=== PATIENT | female | born 1995 | race Caucasian/White ===

== ENCOUNTER 2020-12-01 15:37 | Outpatient (CLI) | payer BC | END 2020-12-01 18:45 | disposition home or self-care (01) | LOC: D.LDO 15:37 | PROVIDERS: ATTEND Obstetrics & Gynecology | DX: O47.9 False labor, unspecified (principal) ==

== ENCOUNTER 2020-12-08 14:38 | Inpatient (IN) | payer MEDICAID ==
[~2020-12-08] VITALS: Ht 154.9 cm; Wt 97.5 kg
[2020-12-08 15:44] LABS: BASOPHILS 0.2 % (0-2); EOSINOPHILS 1.3 % (0-7); HEMOGLOBIN 12.2 g/dL (12-16); IMMATURE GRANULOCYTES 1.5 % (0-5); LYMPHOCYTE ABS# 2.11 10x3/uL (1.18-3.74); LYMPHOCYTES 18.1 % (15-50); MCH 27.8 pg (26.0-34.0); MCV 84.3 fL (80.0-100.0); MEAN PLATELET VOLUME 10.8 fL (7.4-10.4); MONOCYTES 8.7 % (2-11); NEUTROPHIL ABS# 8.21 10x3/uL (1.56-6.13); NEUTROPHILS 70.2 % (40-80); PLATELET COUNT 284 10x3/uL (130-400); RBC 4.39 10x6/uL (4.00-5.40); RDW 14.2 % (11.5-14.5); WBC 11.7 10x3/uL (4.8-10.8)
[2020-12-08 15:51] LABS: CALC OSMOLALITY 265 mosm/kg (275-300); CALCIUM 9.4 mg/dL (8.5-10.1); CARBON DIOXIDE 24.3 mmol/L (21.0-32.0); CHLORIDE - SERUM 98 mmol/L (98-107); CREATININE - SERUM 0.5 mg/dL (0.6-1.3); GLUCOSE 72 mg/dL (74-106); POTASSIUM - SERUM 4.5 mmol/L (3.5-5.1); SODIUM 134 mmol/L (136-145); UREA NITROGEN 11 mg/dL (7-18); eGFR NON AFRICAN AMERICAN > 90 mL/min (90-120)
[2020-12-08 15:57] LABS: ALBUMIN 2.7 g/dL (3.4-5.0); ALKALINE PHOSPHATASE 186 U/L (30-120); ALT (SGPT) 21 U/L (10-68); BILIRUBIN - TOTAL 0.19 mg/dL (0.2-1.3); PROTEIN - SERUM 7.1 g/dL (6.4-8.2)
[2020-12-08 16:04] LABS: BILIRUBIN NEGATIVE (NEGATIVE); KETONE NEGATIVE (NEGATIVE); NITRITE NEGATIVE (NEGATIVE); UROBILINOGEN NORMAL mg/dL (< 2)
[2020-12-08 16:08] LABS: BACTERIA MODERATE HPF (NONE SEEN); SQUAMOUS EPITHELIAL 0-5 HPF (0-4)
[2020-12-08 16:59] LABS: CREATININE - URINE 90.1 mg/dL (30-125); PRO/CRE RATIO URINE 0.2 mg/g; PROTEIN - URINE 18.6 mg/dL (0.0-11.9)
[2020-12-08] MEDS ORDERED: PRENAVITE1 TAB PO (17:49)
--- NOTE | 2020-12-08 19:35 | NUR ---
FUNDUS IS SLIGHLY FIRM, WILL PROVIDE FUNDUS MASSAGE, PT IS GETTING 20UNITS OF PIT IN 1000ML LR AT 125ML/HR. NOTIFDIED . WILL REASSESS
--- NOTE | 2020-12-08 19:45 | NUR ---
FUNDUS IS STILL SLIGHLTY BOGGY MIDLINE. NOTIFIED . 1000MCG OF MISOPROSTOL PO NOW ORDERED. V. READ BACK CORRECT.
[2020-12-08 20:45] VITALS: BP 114/92
--- NOTE | 2020-12-08 20:45 | NUR ---
PT ARRIVES TO [facility] FROM THE RECOVERY ROOM. SHE HAS THE BABY WITH HER.
--- NOTE | 2020-12-08 21:00 | NUR ---
PT HAS A REPEAT C SECTION TODAY. SHE HAD SOME PRE ECLAMPSIA WITH HEADACHE, BLURRED VISION AND SWELLING. PT HAS AN IV IN HER LEFT HAND WITH PITOCIN INFUSING. 20 GUAGE PT HAS A HX OF IV DRUG USE BUT WAS IN REHAB HER ENTIRE . SHE HAS A LOW TRANSVERSE INCISION WITH A WHITE DRESSING OVER IT. THERE IS NO SIGN OF DRAINAGE THROUGH THE DRESSING. PT UTERUS HAS BEEN BOGGY. FUNDUS IS FIRM AT THIS TIME. IT IS PAINFUL TO FEEL HER FUNDUS. SHE HAS A PORRAS CATHETER IN PLACE DRAINING YELLOW URINE. PT WAS GOING TO BREAST FEED AND STILL SAYS SHE IS BUT HAS BOTTLE FED ALL THIS SHIFT. PT LUNGS AND WHEEZES AND CRACKLES THROUGHOUT. SHE SMOKES 2 PPD. SHE HAS BEEN INSTRUCTED ON THE USE OF IS AND CAN PULL [phone] NOW. IT DOES MAKE HER COUGH WHICH SHE DOES NOT LIKE SINCE ITS PAINFUL TO HER. PT HAD A SPINAL AND AT THIS TIME SHE CAN MOVE HER FEET. SHE REQUESTED WATER WHICH WAS GIVEN TO HER. SHE STATES SHE IS STARVING BUT I EXPLAINED THAT SHE WAS ON CLEAR LIQUIDS ONLY. I TOLD HER AFTER THE ORDER FOR A REGULAR DIET WAS IN THAT SHE COULD EAT.
[2020-12-08 21:15] VITALS: BP 132/90
[2020-12-08 21:45] VITALS: BP 190/92
--- NOTE | 2020-12-08 22:00 | NUR ---
PT IS RESTING QUIETLY. BABY IN CRIB ON COUCH SLEEPING.
[2020-12-08 22:15] VITALS: BP 146/93
[2020-12-08 23:00] VITALS: BP 136/89
[2020-12-08 23:08] LABS: UDS - AMPHET NEGATIVE QUAL (NEGATIVE); UDS - BARB NEGATIVE QUAL (NEGATIVE); UDS - BENZO NEGATIVE QUAL (NEGATIVE); UDS - COCAINE NEGATIVE QUAL (NEGATIVE); UDS - OPIATE NEGATIVE QUAL (NEGATIVE); UDS - PCP NEGATIVE QUAL (NEGATIVE); UDS - THC NEGATIVE QUAL (NEGATIVE)
--- NOTE | 2020-12-08 23:24 | NUR ---
PT REQUESTED PAIN MEDS. SHE RECEIVED 2 MG DILAUDID IV. HER FEELING FROM THE SPINAL HAS COME BACK. PT TURNS HERSELF FROM SIDE TO SIDE VERY WELL.
--- NOTE | 2020-12-09 00:30 | NUR ---
PT IS RESTING QUIETLY WITHOUT C/O. PT HASN'T REALLY SLEPT BUT DOZED OFF A COUPLE OF TIMES.
[2020-12-09 01:30] VITALS: BP 126/72
--- NOTE | 2020-12-09 02:30 | NUR ---
BABY IS IN THE NURSERY SO MOM CAN SLEEP. PT DIDN'T SLEEP LONG BUT BABY WAS BROUGHT BACK TO HER TO FEED ABOUT THAT TIME
--- NOTE | 2020-12-09 04:30 | NUR ---
PT IS WATCHING TV. SHE HAS NOT SLEPT MORE THAN AN HOUR TONIGHT. I ASKED HER TO PLEASE TRY TO SLEEP WHILE THE BABY WAS SLEEPING. SHE ASKED FOR A BREAK IN WEARING HER SCD'S ABOUT 0300. I CAN'T GET HER TO PUT THEM BACK ON NOW.
[2020-12-09 05:15] VITALS: BP 115/68
--- NOTE | 2020-12-09 05:35 | NUR ---
PT JUST HAD HER BLOOD DRAWN. I ASK IF I COULD PUT THE SCD'S ON AND SHE SAID NO. I TOLD HER AGAIN THAT THIS PREVENTED BLOOD CLOTS AND SHE STILL SAID NO. SHE WILL DO HER IS EVERY NOW AND THEN BUT IT MAKES HER COUGH, WHICH HURTS HER, AND SHE WON'T DO THAT MORE THAN ONE OR TWO TIMES AT A TIME.
[2020-12-09 06:03] LABS: BASOPHILS 0.1 % (0-2); HEMATOCRIT 30.8 % (36.0-48.0); IMMATURE GRANULOCYTES 0.9 % (0-5); LYMPHOCYTE ABS# 1.49 10x3/uL (1.18-3.74); LYMPHOCYTES 14.2 % (15-50); MCHC 32.5 g/dL (31.0-37.0); MCV 83.2 fL (80.0-100.0); MEAN PLATELET VOLUME 10.4 fL (7.4-10.4); MONOCYTES 4.7 % (2-11); NEUTROPHIL ABS# 8.34 10x3/uL (1.56-6.13); NEUTROPHILS 79.1 % (40-80); RDW 14.1 % (11.5-14.5); WBC 10.5 10x3/uL (4.8-10.8)
[2020-12-09 06:19] LABS: PLATELET COUNT 209 10x3/uL (130-400)
--- NOTE | 2020-12-09 07:30 | NUR ---
REPORT RECEIVED FROM Madison FRIEDMAN RN.
[2020-12-09 08:00] VITALS: BP 104/57
--- NOTE | 2020-12-09 09:05 | NUR ---
DR. PIMENTEL CALLED TO UNIT TO NOTIFY THAT ORDERS HAVE BEEN PLACED FOR IV BOLUS. ORDERS NOTED.
--- NOTE | 2020-12-09 10:08 | NUR ---
IV BOLUS COMPLETE. IV RATE DECREASED TO 25CC/HR. URINE VERY LIGHT STRAW COLOR AND OUTPUT INCREASING.
--- NOTE | 2020-12-09 10:30 | NUR ---
DISCUSSED WITH PT THAT SCD'S HELP WITH PREVENTING BLOOD CLOTS. PT STATES SHE DOES NOT WANT THEM ON BECAUSE SHE IS HOT.
[2020-12-09 12:25] VITALS: BP 116/70
--- NOTE | 2020-12-09 12:30 | NUR ---
DR. PIMENTEL CALLED TO UNIT. STATUS UPDATE GIVEN. ORDERS RECEIVED.
--- NOTE | 2020-12-09 12:38 | NUR ---
REVIEWD INCENTIVE SPIROMETER WITH PT. ENCOURAGED PT USE SPIROMETER HOURLY, TAKING 3-4 GOOD BREATHS WITH EACH USE. PT STATES UNDERSTANDING.
[2020-12-09 14:22] LABS: HEMATOCRIT 30.2 % (36.0-48.0); HEMOGLOBIN 9.7 g/dL (12-16)
--- NOTE | 2020-12-09 15:04 | NUR ---
IV SALINE LOCKED AND FLUSHED WITH 5CC NS. PORRAS CATHETER REMOVED. PT UP TO BATHROOM WITH MININAL ASSISTANCE. VOIDED 100CC WITHOUT DIFFICULTY. LINENS CHANGED. PT UP TO AMBULATE IN HALLWAY PUSHING BABY IN BASINETTE.
--- NOTE | 2020-12-09 15:18 | NUR ---
PT BACK TO ROOM AND INTO BED WITHOUT ASSISTANCE. BABY IN CRIB AT BEDSIDE.
--- NOTE | 2020-12-09 16:59 | NUR ---
DR. PIMENTEL CALLED TO UNIT. STATUS UPDATE GIVEN. CALL. DR. Smith WITH NEXT SET OF VITALS. PT UP TO SHOWER.
--- NOTE | 2020-12-09 17:30 | NUR ---
PT BACK TO BED AFTER SHOWER.
--- NOTE | 2020-12-09 18:07 | NUR ---
PT LYING IN BED ON LEFT SIDE, LIGHTS LOW, WATCHING TV. BABY BESIDE MOTHER IN BED. FOB AT BEDSIDE SLEEPING IN CHAIR. VS TAKEN. PULSE 117.
--- NOTE | 2020-12-09 18:16 | NUR ---
DR. PIMENTEL NOTIFIED OF ELEVATED PULSE. NO NEW ORDERS RECEIVED AT THIS TIME. PT REQUESTS PAIN MEDICATION. MED GIVEN.
--- NOTE | 2020-12-09 19:00 | NUR ---
REPORT GIVEN BY NELSON WHITE
[2020-12-09 19:56] VITALS: BP 118/74; Ht 154.9 cm; Wt 97.5 kg
[2020-12-09 20:00] VITALS: BP 115/62
--- NOTE | 2020-12-09 20:00 | NUR ---
IN PT ROOM FOR VS AND ASSESSMENT. PT HAS BEEN WALKING THE HALLS TODAY. SHE IS DOING THIS WELL. SHE HAS ALSO HAD A SHOWER. HER PORRAS IS OUT AND SHE IS VOIDING WELL. HE IV IN THE RIGHT HAND HAS BEEN SALINE LOCKED. PT PULSE HAS BEEN A LITTLE ELEVATED. PT STATES SHE CANNONT FEEL HER HEART WHEN HER PULSE IS HIGH. SHE DOES NOT GET DIZZY. FUNDUS IS FIRM AND LOCHIA IS LIGHT. SHE IS TALKING ABOUT GETTING UP TO WALK. THIS WAS ENCOURAGED. SIDERAILS X2 AND CALL LIGHT WITHIN REACH.
--- NOTE | 2020-12-09 21:06 | NUR ---
IN PT ROOM TO GIVE PO MED. SHE TELLS ME SHE NEVER DID TAKE THAT WALK B/C SHE STARTED HURTING. I ASKED HER IF SHE WANTED PAIN MEDS. SHE STATES YES. PERCOCET 10 MG GIVEN PO. SHE IS NOW IN BED WITH HER TO GO TO SLEEP
--- NOTE | 2020-12-09 23:00 | NUR ---
PT WALKING IN THE HALLS. SHE STATES SHE IS GOING TO CORRIE HER BABY. SHE HAS BEEN IN BED SLEEPING THE LAST COUPLE OF HOURS. PT REALLY WANTS A SANDWICH BUT THERE ARE NO ANY HERE, LD AND MED 3.
[2020-12-10 00:30] VITALS: BP 101/66
--- NOTE | 2020-12-10 00:30 | NUR ---
WHEN I WALKED IN PT ROOM TO TAKE HER VS I FOUND HER ASLEEP IN THE BED WITH THE BABY. I TOOK THE BABY AND PUT HIM IN THE CRIB. I TALKED TO THE MOM ABOUT NOT SLEEPING WITH THE BABY AND HOW IT COULD CAUSE SUFFICATION. SHE VERBALIZED UNDERSTANDING. WE HAD THE SAME CONVERSATION LAST NIGHT.
--- NOTE | 2020-12-10 01:05 | NUR ---
PT CASUALLY ASKED ME TO HAND HER THE BABY. I ASKED HER IF SHE COULD PROMISE 100% THAT SHE WOULD NOT GO BACK TO SLEEP WITH THE BABY. SHE SAID NO AND I TOLD HER THAT I COULD NOT DO IT. I ASKED IF SHE'D LIKE THE BABY TO GO TO THE NURSERY FOR A WHILE AND SHE SAID NO. THE BABY IS RESTING QUIETLY IN THE CRIB BESIDE THE PT.
--- NOTE | 2020-12-10 03:07 | NUR ---
MYLICON CHEWABLE TABS GIVEN TO PT PER ORDER. WHEN I WAS LEAVING HER ROOM SHE ASKED IF IT WAS TIME FOR PAIN MEDS. I TOLD HER I'D CHECK.
--- NOTE | 2020-12-10 03:16 | NUR ---
I TOOK PT PERCOCET 5 MG X2 FOR A PAIN RATING OF 7. WHILE I WAS IN THE ROOM PT TOLD ME THAT SHE SLIPPED IN THE BR BUT DID NOT FALL.SHE STATES SHE WOKE HER UP TO HELP HER. I ASKED HER WHY SHE DIDN'T CALL ME. ALL OF THIS WAS UNWITNESSED. SHE STATES THIS HAPPENED A COUPLE OF HOURS AGO. BABY IS IN THE NURSERY.
--- NOTE | 2020-12-10 04:59 | NUR ---
PT CALLED ME INTO HER ROOM. SHE WANTS SOMETHING TO EAT. SHE STATES SHE DOESN'T CARE WHAT IT IS, SHE'S HUNGRY AND WILL EAT WHATEVER I BRING HER. I TOOK HER SOME SOMEWHAT HEALTHY SNACKS AND SHE WAS VERY SATISFIED. SHE STATES HER PAIN IS BETTER.
--- NOTE | 2020-12-10 05:10 | NUR ---
PT HAD WALKED TO THE NURSERY TO GET HER BABY. SHE DID NOT HAVE ON HER SKID PROOF SOCKS. I ASK HER TO PLEASE PUT THEM ON WHEN OUT OF BED WALKING.
[2020-12-10 07:16] LABS: RAPID PLASMA REAGIN Non Reactive (Non Reactive)
[2020-12-10 07:38] VITALS: BP 138/90
--- NOTE | 2020-12-10 07:38 | NUR ---
AM ASSESSMENT COMPLETED CHARTED TO FLOWSHEET. RATES PAIN AT 6/10 AND IS AGREEABLE TO PAIN MED WITH MOTRIN, SEE EMAR. FUNDUS FIRM AT U/U, BIKINI INCISION CLEAN AND DRY WITH STERI STRIPS IN PLACE. SALINE LOCK REMOVED FROM LEFT WRIST WITH CATH NOTED TO BE INTACT. DENIES NEEDS AT THIS TIME, INFANT IN CRIB AT BEDSIDE. CALL LIGHT IN REACH WITH SIDE RAILS UP X 2.
--- NOTE | 2020-12-10 09:08 | NUR ---
PAIN REASSESSMENT WITH PT RATING PAIN AT 0/10. CONTINUE TO DENY NEEDS. INFANT AT BEDSIDE IN CRIB.
--- NOTE | 2020-12-10 11:15 | NUR ---
CALLED TO ROOM, PT COMPLAINS OF CRAMPING AND ASK FOR MOTRIN, REMINDED PATIENT THAT SHE TOOK MOTRIN EARLIER AT THE SAME TIME SHE TOOK HER NORCO. WARM TOWEL OFFERED BUT SHE DENIES. NO OTHER NEEDS VOICED AT THIS TIME.
--- NOTE | 2020-12-10 12:33 | NUR ---
DR PIMENTEL CALLS UNIT, REPORT GIVEN THAT PT WAS UP AMB, SHOWER AND DRESSING HAD BEEN REMOVED YESTERDAY. STATES SHE WILL ROUND AFTER CLINIC HOURS TODAY.
--- NOTE | 2020-12-10 12:35 | NUR ---
INFANT TO NURSERY VIA CRIB WITH NURSERY NURSE. PT AND SPOUSE AMB IN HALLS, SHE RATES PAIN AT 2/10 AT THIS TIME.
[2020-12-10 14:00] VITALS: BP 131/70
--- NOTE | 2020-12-10 15:50 | NUR ---
PAIN MED GIVEN FOR PAIN THAT SHE RATES AT 5/10. PT WAITING FOR DR PIMENTEL FOR DISCHARGE. DENIES ANY OTHER NEEDS AT THIS TIME.
--- NOTE | 2020-12-10 16:15 | NUR ---
DISCHARGE ORDER RECEIVED FROM DR PIMENTEL. D/C INSTRUCTIONS GONE OVER VERBALLY AND PT GIVEN WRITTEN COPY. DENIES QUESTIONS OR CONCERNS AND UNDERSTANDS THAT SHE NEEDS TO F/UP WITH DR PIMENTEL IN ONE WEEK FOR A BLOOD PRESSURE CHECK.
--- NOTE | 2020-12-10 16:28 | NUR ---
TAKEN OUT BY WHEELCHAIR WITH SECURED IN TO [facility]RIER, HOME BY PRIVATE CAR WITH SPOUSE.
== END 2020-12-10 16:36 | disposition home or self-care (01) | DRG 788 ==
LOC: D.LDO 14:38 → D.LD 18:07 → D.WS 18:07
PROVIDERS: ADMIT Obstetrics & Gynecology; ATTEND Obstetrics & Gynecology
PROC: 10D00Z1 Extraction of Products of Conception, Low, Open Approach (ICD-10-PCS; principal; 2020-12-08 18:11)
DX: O13.4 Gestational [pregnancy-induced] hypertension without significant proteinuria, complicating childbirth (principal); Z3A.38 38 weeks gestation of pregnancy; Z37.0 Single live birth; O99.214 Obesity complicating childbirth; E66.9 Obesity, unspecified